=== PATIENT | female | born 1950 | race Caucasian/White ===

== ENCOUNTER → 2016-12-03 | Outpatient (CLI) | payer MEDICARE, BC ==
--- NOTE | 2016-12-03 10:07 | MM ---
Reason for exam: clinical finding. Last mammogram was performed 6 months ago. History: Patient is postmenopausal. Family history of breast cancer in sister at age 47 and breast cancer in mother at age 48. Benign stereotactic core biopsy of the left breast, February 27, 2006. Benign cyst aspiration of the left breast, June 28, 2003. Took hormonal contraceptives for 1 year beginning at age 20. Indicated problem(s): pain in the left breast. Physical Findings: Nurse did not find any significant physical abnormalities on exam. MG 3D Diag Mammo W/Cad [facility] Bilateral CC and MLO view(s) were taken. Prior study comparison: June 04, 2016, bilateral MG 3d screening mammo w/cad. June 01, 2015, bilateral MG 3d screening mammo w/cad. The breast tissue is heterogeneously dense. This may lower the sensitivity of mammography. Benign calcifications. Previous mammotome biopsy in the left breast. No significant new findings when compared with previous films. These results were verbally communicated with the patient and result sheet given to the patient on 12/03/16. ASSESSMENT: Benign, BI-RAD 2 RECOMMENDATION: Follow-up diagnostic mammogram of both breasts in 6 months.
== END | disposition home or self-care (01) ==
LOC: RADMAMWWP 09:00
PROVIDERS: ATTEND Family Medicine
DX: N64.4 Mastodynia (principal)
CPT/HCPCS: G0204; G0279

== ENCOUNTER → 2018-02-26 | Outpatient (CLI) | payer BC, MEDICARE ==
--- NOTE | 2018-02-26 10:50 | MM ---
Reason for exam: clinical finding. Last mammogram was performed 9 months ago. History: Patient is postmenopausal and history of other cancer. Family history of breast cancer in sister at age 47 and breast cancer in mother at age 48. Benign stereotactic core biopsy of the left breast, February 27, 2006. Benign cyst aspiration of the left breast, June 28, 2003. Took hormonal contraceptives for 1 year beginning at age 20. Indicated problem(s): lump or thickening in the left breast. Physical Findings: Nurse did not find any significant physical abnormalities on exam. MG 3D Diag Mammo W/Cad [facility] Bilateral CC, MLO, LM, and spot compression MLO view(s) were taken. Spot compression CC view(s) were taken of the right breast. Prior study comparison: June 05, 2017, bilateral MG 3d diag mammo w/cad [facility]. December 03, 2016, bilateral MG 3d diag mammo w/cad [facility]. The breast tissue is heterogeneously dense. This may lower the sensitivity of mammography. Previous mammotome biopsy in the left breast. Right breast upper inner quadrant focal asymmetry does not persist on additional views. Asymmetric density superior anterior left breast partially disperses on additional views. These results were verbally communicated with the patient and result sheet given to the patient on 02/26/18. ASSESSMENT: Incomplete: need additional imaging evaluation, BI-RAD 0 RECOMMENDATION: Ultrasound of the left breast.
--- NOTE | 2018-02-26 10:51 | USB ---
Reason for exam: additional evaluation requested from abnormal screening. History: Patient is postmenopausal and history of other cancer. Family history of breast cancer in sister at age 47 and breast cancer in mother at age 48. Benign stereotactic core biopsy of the left breast, February 27, 2006. Benign cyst aspiration of the left breast, June 28, 2003. Took hormonal contraceptives for 1 year beginning at age 20. US Breast LT Left complete breast ultrasound includes all four quadrants, the retroareolar region and axilla. Finding demonstrates very ectatic short sequent duct at the posterior nipple. No cystic or solid lesion seen. No fitting defect seen. 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 These results were verbally communicated with the patient and result sheet given to the patient on 02/26/18. ASSESSMENT: Probably benign, BI-RAD 3 RECOMMENDATION: Follow-up diagnostic mammogram and ultrasound of the left breast in 6 months.
== END | disposition home or self-care (01) ==
LOC: RADMAMWWP 08:29
PROVIDERS: ATTEND Family Medicine
DX: R92.8 Other abnormal and inconclusive findings on diagnostic imaging of breast (principal); N63.20 Unspecified lump in the left breast, unspecified quadrant
CPT/HCPCS: 77066; 76641; G0279; 77062

== ENCOUNTER → 2019-04-17 | Outpatient (CLI) | payer MEDICARE ==
--- NOTE | 2019-04-17 14:41 | MM ---
Reason for exam: additional evaluation requested from prior study. Last mammogram was performed 1 year and 2 months ago. History: Patient is postmenopausal and history of other cancer. Family history of breast cancer in sister at age 47 and breast cancer in mother at age 48. Benign stereotactic core biopsy of the left breast, February 27, 2006. Benign cyst aspiration of the left breast, June 28, 2003. Took hormonal contraceptives for 1 year beginning at age 20. Physical Findings: Nurse Summary: 1cm nodule in the right breast at 11 o'clock (nurse bianca). MG 3D Diag Mammo W/Cad [facility] Bilateral CC and MLO view(s) were taken. Spot compression CC, spot compression MLO, and ML view(s) were taken of the right breast. Prior study comparison: February 26, 2018, bilateral MG 3d diag mammo w/cad [facility]. June 05, 2017, bilateral MG 3d diag mammo w/cad [facility]. The breast tissue is heterogeneously dense. This may lower the sensitivity of mammography. There are benign appearing round calcifications bilaterally. Previous mammotome biopsy in the left breast. There is chronic nodularity in the left breast. There is no discrete abnormality. These results were verbally communicated with the patient and result sheet given to the patient on 04/17/19. ASSESSMENT: Benign, BI-RAD 2 RECOMMENDATION: Routine screening mammogram of both breasts in 1 year.
--- NOTE | 2019-04-17 14:42 | USB ---
Reason for exam: additional evaluation requested from prior study. History: Patient is postmenopausal and history of other cancer. Family history of breast cancer in sister at age 47 and breast cancer in mother at age 48. Benign stereotactic core biopsy of the left breast, February 27, 2006. Benign cyst aspiration of the left breast, June 28, 2003. Took hormonal contraceptives for 1 year beginning at age 20. US Breast BILAT Right complete breast ultrasound includes all four quadrants, the retroareolar region and axilla. Finding demonstrates no cystic or solid lesion seen. Left complete breast ultrasound includes all four quadrants, the retroareolar region and axilla. Finding demonstrates dilated ducts at the posterior nipple. These results were verbally communicated with the patient and result sheet given to the patient on 04/17/19. ASSESSMENT: Negative, BI-RAD 1 RECOMMENDATION: Routine screening mammogram of both breasts in 1 year. Manage on a clinical basis with regard to right palpable.
== END | disposition home or self-care (01) ==
LOC: RADMAMWWP 12:50
PROVIDERS: ATTEND Family Medicine
DX: R92.8 Other abnormal and inconclusive findings on diagnostic imaging of breast (principal); R92.2 Inconclusive mammogram; N63.0 Unspecified lump in unspecified breast
CPT/HCPCS: 77066; 76641; G0279; 77062

== ENCOUNTER → 2020-05-23 | Outpatient (CLI) | payer MEDICARE ==
--- NOTE | 2020-05-24 13:40 | MM ---
Reason for exam: screening (asymptomatic). Last mammogram was performed 1 year and 1 month ago. History: Patient is postmenopausal and history of other cancer. Family history of breast cancer in sister at age 47 and breast cancer in mother at age 48. Benign stereotactic core biopsy of the left breast, February 27, 2006. Benign cyst aspiration of the left breast, June 28, 2003. Took hormonal contraceptives for 1 year beginning at age 20. Physical Findings: A clinical breast exam by your physician is recommended on an annual basis and results should be correlated with mammographic findings. MG 3D Screening Mammo W/Cad Bilateral CC and MLO view(s) were taken. Prior study comparison: April 17, 2019, bilateral MG 3d diag mammo w/cad [facility]. February 26, 2018, bilateral MG 3d diag mammo w/cad [facility]. The breast tissue is heterogeneously dense. This may lower the sensitivity of mammography. There are benign appearing round calcifications bilaterally. Previous mammotome biopsy in the left breast. Asymmetric breast tissue in the right breast, stable. There is no discrete abnormality. ASSESSMENT: Benign, BI-RAD 2 RECOMMENDATION: Routine screening mammogram of both breasts in 1 year.
== END | disposition home or self-care (01) ==
LOC: RADMAMWWP 10:49
PROVIDERS: ATTEND Family Medicine
DX: Z12.31 Encounter for screening mammogram for malignant neoplasm of breast (principal)
CPT/HCPCS: 77063; 77067

== ENCOUNTER → 2021-05-24 | Outpatient (CLI) | payer MEDICARE ==
--- NOTE | 2021-05-26 11:27 | MM ---
Reason for exam: screening (asymptomatic). Last mammogram was performed 1 year ago. History: Patient is postmenopausal and has history of other cancer at age 48. Family history of breast cancer in sister at age 47 and breast cancer in mother at age 48. Benign stereotactic core biopsy of the left breast, February 27, 2006. Benign cyst aspiration of the left breast, June 28, 2003. Took hormonal contraceptives for 1 year beginning at age 20. Physical Findings: A clinical breast exam by your physician is recommended on an annual basis and results should be correlated with mammographic findings. MG 3D Screening Mammo W/Cad Bilateral CC and MLO view(s) were taken. Prior study comparison: May 23, 2020, bilateral MG 3d screening mammo w/cad. April 17, 2019, bilateral MG 3d diag mammo w/cad [facility]. The breast tissue is heterogeneously dense. This may lower the sensitivity of mammography. There are benign appearing round calcifications bilaterally. Previous mammotome biopsy in the left breast. There is no discrete abnormality. ASSESSMENT: Benign, BI-RAD 2 RECOMMENDATION: Routine screening mammogram of both breasts in 1 year.
== END | disposition home or self-care (01) ==
LOC: RADMAMWWP 10:48
PROVIDERS: ATTEND Family Medicine
DX: Z12.31 Encounter for screening mammogram for malignant neoplasm of breast (principal); Z78.0 Asymptomatic menopausal state; Z80.3 Family history of malignant neoplasm of breast
CPT/HCPCS: 77063; 77067

== ENCOUNTER → 2022-05-25 | Outpatient (CLI) | payer MEDICARE ==
--- NOTE | 2022-05-28 08:37 | MM ---
Reason for Exam: Screening (asymptomatic). Last screening mammogram was performed 12 month(s) ago. Patient History: Menarche at age 13. First Full-Term at age 23. Postmenopausal. Other cancer, age 48. Hormonal Contraceptives, starting at age 20 for 1 year. 02/27/2006, Benign Stereotactic Core Biopsy on the left side. 06/28/2003, Benign Cyst Aspiration on the left side. Sister had breast cancer, age 47. Mother had breast cancer, age 48. Risk Values: Kiki 5 year model risk: 8.3%. NCI Lifetime model risk: 21.2%. Prior Study Comparison: 04/17/2019 Bilateral Diagnostic Mammogram, [facility]. 05/23/2020 Bilateral Screening Mammogram, [facility]. 05/24/2021 Bilateral Screening Mammogram, [facility]. Tissue Density: There are scattered fibroglandular densities. Findings: Analyzed By CAD. There is no suspicious group of microcalcifications or new suspicious mass in either breast. Overall Assessment: Negative, BI-RAD 1 Management: Screening Mammogram of both breasts in 1 year. A clinical breast exam by your physician is recommended on an annual basis and results should be correlated with mammographic findings. [facility] will attempt to contact patient to return for supplemental views and ultrasound if indicated. Electronically signed and approved by: Nain Dunbar DO
== END | disposition home or self-care (01) ==
LOC: RADMAMWWP 12:28
PROVIDERS: ATTEND Family Medicine
DX: Z12.31 Encounter for screening mammogram for malignant neoplasm of breast (principal); Z78.0 Asymptomatic menopausal state; Z80.3 Family history of malignant neoplasm of breast
CPT/HCPCS: 77063; 77067

== ENCOUNTER → 2023-06-07 | Outpatient (CLI) | payer MEDICARE ==
--- NOTE | 2023-06-10 14:39 | MM ---
Reason for Exam: Screening (asymptomatic). Last screening mammogram was performed 12 month(s) ago. Patient History: Menarche at age 13. First Full-Term at age 23. Postmenopausal. Other cancer, age 48. Hormonal Contraceptives, starting at age 20 for 1 year. 02/27/2006, Benign Stereotactic Core Biopsy on the left side. 06/28/2003, Benign Cyst Aspiration on the left side. Sister had breast cancer, age 47. Mother had breast cancer, age 48. Risk Values: Kiki 5 year model risk: 8.4%. NCI Lifetime model risk: 19.3%. Prior Study Comparison: 05/23/2020 Bilateral Screening Mammogram, [facility]. 05/24/2021 Bilateral Screening Mammogram, [facility]. 05/25/2022 Bilateral MG 3D screening mammo w/cad, [facility]. Tissue Density: There are scattered fibroglandular densities. Findings: Analyzed By CAD. Head and appears symmetrical and stable. Surgical markers within the left breast. No significant interval changes are evident. No suspicious groups of microcalcifications, spiculated or lobular masses, architectural distortion or other secondary signs of malignancy are mammographically apparent. Overall Assessment: Benign, BI-RAD 2 Management: Screening Mammogram of both breasts in 1 year. A negative mammogram report should not preclude additional follow up of suspicious palpable abnormalities. Patient should continue monthly self breast exam. A clinical breast exam by your physician is recommended on an annual basis and results should be correlated with mammographic findings. Electronically signed and approved by: Aston Martines D.O. Radiologis
== END | disposition home or self-care (01) ==
LOC: RADMAMWWP 07:29
PROVIDERS: ATTEND Family Medicine
DX: Z12.31 Encounter for screening mammogram for malignant neoplasm of breast (principal); Z78.0 Asymptomatic menopausal state; Z80.3 Family history of malignant neoplasm of breast
CPT/HCPCS: 77063; 77067

== ENCOUNTER → 2024-06-08 | Outpatient (CLI) | payer MEDICARE ==
--- NOTE | 2024-06-08 13:14 | BD ---
EXAMINATION TYPE: Axial Bone Density DATE OF EXAM: 06/08/2024 CLINICAL HISTORY: 74 years old Female. ICD-10 CODE: Z12.31 Screening mammogram; Z78.0 ASYMPTOMATIC M EN , Additional History: Height: 67.7 Weight: 188 FRAX RISK QUESTIONS: History of Fracture in Adulthood: yes Secondary Osteoporosis: RISK FACTORS HISTORY OF: History of Wrist Fracture: right When: 2019 MEDICATIONS: EXAM MEASUREMENTS: Bone mineral densitometry was performed using the [employer] System. Bone mineral density as measured about the Lumbar spine is: ----- L1-L4(G/cm2): 1.446 T Score Values are as follows: ----- L1: 1.6 ----- L2: 2.8 ----- L3: 3.4 ----- L4: 1.1 ----- L1-L4: 2.2 Z Score Values are as follows: ----- L1: 2.7 ----- L2: 3.9 ----- L3: 4.5 ----- L4: 2.2 ----- L1-L4: 3.3 Bone mineral density has: Increased 8.4% since study of: 12-05-15 Bone mineral density about the R hip (g/cm2): 1.037 Bone mineral density about the L hip (g/cm2): 1.046 T Score values are as follows: -----R Neck: -0.7 -----L Neck: -0.2 -----R Total: 0.2 -----L Total: 0.3 Z Score values are as follows: -----R Neck: 0.7 -----L Neck: 1.2 -----R Total: 1.4 -----L Total: 1.5 Bone mineral density has: Decreased -4.9% since study of: 12-05-15 FRAX%s: The graph provided illustrates a 13.5% chance for a major osteoporotic fx and a 1.4% chance f or the hips probability for fx in 10 years time. IMPRESSION: Normal (Values between +1 and -1 indicate normal bone mass). Consider repeating this study in 5 year s or sooner if there is some new clinical indication. NOTE: T-SCORE=SD OF THE YOUNG ADULT MEAN. [facility], , 06/08/2024 1:12 PM
--- NOTE | 2024-06-09 15:02 | MM ---
Reason for Exam: Screening (asymptomatic). Last screening mammogram was performed 12 month(s) ago. Patient History: Menarche at age 13. First Full-Term at age 23. Postmenopausal. Other cancer, age 48. Hormonal Contraceptives, starting at age 20 for 1 year. 02/27/2006, Benign Stereotactic Core Biopsy on the left side. 06/28/2003, Benign Cyst Aspiration on the left side. Sister had breast cancer, age 47. Mother had breast cancer, age 48. Risk Values: Kiki 5 year model risk: 8.4%. NCI Lifetime model risk: 18.3%. Prior Study Comparison: 05/24/2021 Bilateral Screening Mammogram, [facility]. 05/25/2022 Bilateral MG 3D screening mammo w/cad, [facility]. 06/07/2023 Bilateral MG 3D screening mammo w/cad, [facility]. Tissue Density: The breasts are heterogeneously dense, which may obscure small masses. Findings: Analyzed By CAD. There is no suspicious group of microcalcifications or new suspicious mass in either breast. Overall Assessment: Benign, BI-RAD 2 Management: Screening Mammogram of both breasts in 1 year. . Patient should continue monthly self-breast exams. A clinical breast exam by your physician is recommended on an annual basis. This exam should not preclude additional follow-up of suspicious palpable abnormalities. Note on Kiki scores and lifetime risk: 1. A Kiki score greater than 3% is considered moderate risk. If this is the case, consider specialist referral to assess eligibility for a risk reducing agent. 2. If overall lifetime risk for the development of breast cancer is 20% or higher, the patient may qualify for future screening with alternating mammogram and breast MRI. [facility], , 06/09/2024 2:59 PM. Electronically signed and approved by: Osbaldo Augustine M.D. Radiologis
== END | disposition home or self-care (01) ==
LOC: RADMAMWWP 08:50
PROVIDERS: ATTEND Family Medicine
DX: Z12.31 Encounter for screening mammogram for malignant neoplasm of breast (principal); Z78.0 Asymptomatic menopausal state; Z80.3 Family history of malignant neoplasm of breast; R92.333 Mammographic heterogeneous density, bilateral breasts
CPT/HCPCS: 77063; 77067; 77080